=== PATIENT | male | born 1975 | race African-American/Black ===

== ENCOUNTER 2020-01-15 16:38 | Observation (INO) ==
[2020-01-15] MEDS ORDERED: ACETAMINOPHEN 325 MG TABLET PO PRN (21:06)
[2020-01-15] MEDS ORDERED: ONDANSETRON 4 MG/2 ML VIAL IV PRN (21:06)
[2020-01-15] MEDS: ENOXAPARIN 40 MG/0.4 ML SYRINGE SUBCUT SCH (21:45)
[2020-01-16] MEDS: PANTOPRAZOLE 40 MG TABLET PO SCH (08:35)
[2020-01-16] MEDS ORDERED: ENALAPRIL 20 MG TABLET PO SCH (09:00)
[2020-01-16] MEDS ORDERED: hydroCHLOROthiazide 25 MG TABLET PO SCH (09:00)
[2020-01-16 09:01] LABS: Basophils % 0.2 % (0.0-0.8); Eosinophils % 0.2 % (0.00-10.9); Hematocrit 44.1 VOL% (42.0-52.0); Hemoglobin 14.5 GM/DL (14.0-18.0); Immature Granulocytes % 0.2 %; Immature Granulocytes Absolute 0.01 #; Lymphocytes # 1.5 10*3/uL (1.4-4.0); Lymphocytes % 31.7 % (21.2-54.2); Mean Corpuscular HGB Conc 32.9 GM/DL (32-36); Mean Corpuscular Volume 91.3 FL (87-102); Mean Platelet Volume 10.5 FL (9.6-12.0); Monocytes % 5.5 % (1.7-12.7); Neutrophils % 62.2 % (38.7-73.9); Platelet Count 185 T/CUMM (130-400); Red Blood Count 4.83 MC/CUMM (3.8-5.5); Red Cell Distribution Width 12.7 % (9.3-17.3); White Blood Count 4.7 T/CUMM (4-12)
[2020-01-16 09:40] LABS: Alanine Aminotransferase 30 U/L (16-61); Albumin 3.4 G/DL (3.4-5.0); Alkaline Phosphatase 51 U/L (45-117); Aspartate Amino Transferase 15 U/L (0-37); Blood Urea Nitrogen 19 MG/DL (7-18); Calcium 9.1 MG/DL (8.5-10.1); Estimated Glom Filtration Rate 110 ML/MIN; Glucose 132 MG/DL (74-106); Osmolality,Calculated 271.2 MOS/KG (273-304); Risk Ratio 5.88; Total Protein 7.5 G/DL (6.4-8.3); Troponin I < 0.015 NG/ML (0.00-0.045)
[2020-01-16] MEDS ORDERED: ENALAPRIL 10 MG TABLET PO SCH (14:13)
[2020-01-16] MEDS ORDERED: GLUCAGON 1 MG VIAL IM PRN (14:21)
[2020-01-16] MEDS ORDERED: DEXTROSE 50% 25 GM/50 ML VIAL IV PRN (14:21)
[2020-01-16] MEDS ORDERED: NICOTINE 21 MG/24 HR PATCH TRANSDERM PRN (15:01)
[2020-01-16] MEDS: SODIUM CHLORIDE 0.9% 1,000 ML IV SCH (15:14)
[2020-01-16] MEDS: carvediloL 3.125 MG TABLET PO SCH ×2 (15:14→20:35)
[2020-01-16 15:50] LABS: Apearance,Urine CLEAR (Clear); Bilirubin,Urine Negative (Negative); Blood, Urine Small mg/dL (Negative); Glucose,Urine (UA) Negative (Negative); Ketones,Urine Negative (Negative); Nitrite,Urine Negative (Negative); Protein,Urine Negative; RBC,Urine 1 /HPF (0-4); Squamous Epithelial Cell,Urine Occasional /HPF (0-10); Urine Color Straw (Yellow); Urine Urobilinogen < 2.0 EU/DL (0.2-1.0); WBC,Urine 1 /HPF (0-6)
[2020-01-16] MEDS: INSULIN REGULAR 100 UNIT/ML SUBCUT SCH ×2 (16:19→20:46)
[2020-01-16] MEDS: ENOXAPARIN 40 MG/0.4 ML SYRINGE SUBCUT SCH (20:35)
[2020-01-16 20:45] LABS: Barbiturates Screen,Urine Negative (Negative); Benzodiazepines Screen,Urine Negative (Negative); Cannabinoid Screen,Urine Negative (Negative); Opiate Screen,Urine Negative (Negative); Phencyclidine Screen,Urine Negative (Negative)
[2020-01-17] MEDS: SODIUM CHLORIDE 0.9% 1,000 ML IV SCH ×2 (05:09→05:15)
[2020-01-17 05:30] LABS: Basophils % 0.5 % (0.0-0.8); Eosinophils % 0.9 % (0.00-10.9); Hemoglobin 14.5 GM/DL (14.0-18.0); Immature Granulocytes % 0.2 %; Immature Granulocytes Absolute 0.01 #; Lymphocytes # 1.5 10*3/uL (1.4-4.0); Lymphocytes % 34.3 % (21.2-54.2); Mean Corpuscular Volume 90.5 FL (87-102); Mean Platelet Volume 10.8 FL (9.6-12.0); Neutrophils % 52.1 % (38.7-73.9); Platelet Count 193 T/CUMM (130-400); Red Blood Count 4.86 MC/CUMM (3.8-5.5); Red Cell Distribution Width 12.5 % (9.3-17.3); White Blood Count 4.3 T/CUMM (4-12)
[2020-01-17 06:03] LABS: Osmolality,Calculated 274.8 MOS/KG (273-304)
[2020-01-17 06:05] LABS: Risk Ratio 4.89; VLDL CHOLESTEROL 33.2 MG/DL
[2020-01-17] MEDS: INSULIN REGULAR 100 UNIT/ML SUBCUT SCH (07:38)
[2020-01-17] MEDS: carvediloL 3.125 MG TABLET PO SCH (08:55)
[2020-01-17] MEDS: PANTOPRAZOLE 40 MG TABLET PO SCH (08:55)
[2020-01-17 08:58] VITALS: BP 116/69
== END 2020-01-17 11:10 | disposition home or self-care (01) ==
LOC: N.TELEN → SUATTDRO 21:06
PROVIDERS: ADMIT Internal Medicine; ATTEND Internal Medicine